=== PATIENT | male | born 1970 | race Caucasian/White ===

== ENCOUNTER 2019-12-29 07:07 | Emergency (ER) | payer SELFPAY ==
[2019-12-29] MEDS ORDERED: Proparacaine 0.5% Opth 15 ML BOT ONE (07:23)
[2019-12-29] MEDS ORDERED: Fluorescein Opthalmic Strip ONE (07:23)
== END 2019-12-29 07:37 | disposition home or self-care (01) ==
LOC: NAV ERS 07:07
DX: S05.01XA Injury of conjunctiva and corneal abrasion without foreign body, right eye, initial encounter (principal); F17.210 Nicotine dependence, cigarettes, uncomplicated; W22.8XXA Striking against or struck by other objects, initial encounter
CPT/HCPCS: 99283